=== PATIENT | female | born 1965 | race Caucasian/White ===

== ENCOUNTER → 2020-11-02 09:57 | Outpatient (CLI) | payer OTHER, SELFPAY ==
--- NOTE | 2020-11-02 | DI.MRI.S_ITS ---
PROCEDURE: MR LUMBAR SPINE WO CON INDICATIONS: Low back pain TECHNIQUE: Noncontrast sagittal T1 spin echo and T2 fast echo, sagittal STIR, axial T1 and T2 fast spin echo through the lumbar spine. In cases with scoliosis, additional coronal T2 fast spin echo may be performed. COMPARISON: None. FINDINGS: Image quality: Excellent. Alignment and Curvature: There is leftward scoliotic curvature with apex at L3. Bone Marrow: Marrow is of normal overall signal. Moderate reactive endplate changes with Schmorl's nodes are noted at L3-4. Trace reactive changes are noted at multiple other levels. No acute vertebral body compression fractures. Spinal Cord: Conus medullaris terminates at the L1-L2 level. Visualized cord demonstrates normal signal and size. Paraspinous Soft Tissues: No paravertebral masses. Discs: Overall moderate desiccation is present throughout the lumbar spine, moderate to severe at L3-4. L1-L2: Minimal disc bulge without spinal stenosis or foraminal narrowing. Facet and ligamentum flavum hypertrophy as well as epidural lipomatosis are present. L2-L3: Mild disc bulge with minimal canal narrowing. No foraminal narrowing. Facet and ligamentum flavum hypertrophy are present. L3-L4: Mild disc bulge with minimal canal narrowing. There is moderate bilateral foraminal narrowing with facet and ligamentum flavum hypertrophy. Increased T2 signal is noted within the exiting nerve roots bilaterally. L4-L5: Mild disc bulge with mild canal narrowing. [id number] left foraminal narrowing with facet and ligamentum flavum hypertrophy. L5-S1: Mild disc bulge without spinal stenosis. [id number] left foraminal narrowing with facet and ligamentum flavum hypertrophy. IMPRESSION: 1. Multilevel disc bulges. 2. Leftward scoliotic curvature with apex at L3. 3. Overall minimal to mild canal narrowing most notable at L4-5 secondary to disc bulge with contributing effect facet/ligamentum flavum arthropathy, as well as scoliotic curvature. 4. Multilevel foraminal narrowing most severe at L3-4 predominantly secondary to facet arthropathy with contributing effect of scoliotic curvature. Dictated by: Joy Conrad M.D. on 11/03/2020 at 9:49 Approved by: Joy Conrad M.D. on 11/03/2020 at 10:50
== END ==
PROVIDERS: PCP Internal Medicine; Referring Provider Internal Medicine; Visit Provider Internal Medicine
DX: M51.26 Other intervertebral disc displacement, lumbar region (principal); M51.27 Other intervertebral disc displacement, lumbosacral region; M47.816 Spondylosis without myelopathy or radiculopathy, lumbar region; M47.817 Spondylosis without myelopathy or radiculopathy, lumbosacral region; M48.061 Spinal stenosis, lumbar region without neurogenic claudication; M48.07 Spinal stenosis, lumbosacral region
CPT/HCPCS: 72148